=== PATIENT | male | born 1985 | race Caucasian/White ===

== ENCOUNTER 2020-03-31 15:00 | Emergency (ER) | payer OTHER, SELFPAY ==
[2020-03-31 15:14] VITALS: BP 153/115; PULSE 89; RESP 20; TEMP 37.3; O2SAT 98
--- NOTE | 2020-03-31 15:21 | ED.GENADULT ---
HPI - General Adult General Chief complaint: Eye Problems Stated complaint: eye problems Source: patient Mode of arrival: ambulatory Limitations: no limitations History of Present Illness HPI narrative: Patient is a 35-year-old male who presents complaining of left eye pain. Patient reports removing a door and cutting material when he believes something got in his left eye. Patient reports tearing, burning and irritation. He denies blurred vision. He reports flushing eye without relief. He denies taking [id number] pain medications prior to arrival. complaint: Left eye pain Related Data Allergies Allergy/AdvReac Type Severity Reaction Status Date / Time No Known Allergies Allergy Unknown Verified 03/31/20 15:03 Review of Systems Review of Systems: Narrative: CONSTITUTIONAL: Denies fever, chills, or sweats. EYES: LEFT eye pain, redness, and tearing. ENT: Denies rhinorrhea, congestion, sore throat, or otalgia. CARDIOVASCULAR: Denies chest pain, palpitations, or edema. RESPIRATORY: Denies cough or dyspnea. GASTROINTESTINAL: Denies abdominal pain, nausea, vomiting, or diarrhea. GENITOURINARY: Denies dysuria or hematuria. SKIN: Denies rash or itching. MUSCULOSKELETAL: Denies back pain, joint pain, or myalgia. NEUROLOGIC: Denies headache, numbness, dizziness, or weakness. PSYCHIATRIC: Denies anxiety or depression. PMFSH Surgical History Surgical History No significant past surgical history Family History Family History Mother Patient's mother is in good health Father Family history of cardiovascular disease Family history of chronic obstructive pulmonary disease Other Cerebrovascular accident Family history of alcoholism Hypertension No significant family history Social History Social History Smoking status: Heavy tobacco smoker Second hand tobacco smoke exposure: No Alcohol intake: current Gender identity (if verbalized by the patient): Male Exam Narrative: Exam Narrative: GENERAL: Well-appearing, well-nourished, and in no acute distress. HEAD: Normocephalic, atraumatic. EYES: LEFT eye tearing, sclera injected ENT: Mucous membranes pink and moist. CHEST: No respiratory distress. Clear to auscultation. HEART: Regular rate and rhythm. No murmur appreciated. Normal peripheral pulses. EXTREMITIES: Normal range of motion. No edema. SKIN: Warm, dry, no rash. NEURO: No focal deficits. Alert and oriented x3. Gait steady. PSYCH: Normal affect. No signs of depression or anxiety. Course Vital Signs Vital signs: Vital Signs Temperature 37.3 C 03/31/20 15:14 Pulse Rate 89 03/31/20 15:14 Respiratory Rate 20 03/31/20 15:14 Blood Pressure 153/115 H 03/31/20 15:14 Pulse Oximetry 98 03/31/20 15:14 Temperature 37.3 C 03/31/20 15:14 Pulse Rate 89 03/31/20 15:14 Respiratory Rate 20 03/31/20 15:14 Blood Pressure 153/115 H 03/31/20 15:14 Pulse Oximetry 98 03/31/20 15:14 Procedures Other Procedure Procedure 1: Other Procedure: Left eye was anesthetized with 1 drop of tetracaine and anesthesia was achieved. The eye was flushed with eyewash. Lid was inverted and examined. Moistened Q-tip was used to sweep underneath the upper eyelid with 0 foreign bodies resulting. Cornea was dyed with fluorescein and 1 abrasions or ulcerations were noted. Patient tolerated procedure well. Medical Decision Making MDM Narrative Medical decision making narrative: Patient has left corneal abrasion, ophthalmology appointment to be prescribed at this time. Patient given instructions for comfort. Patient verbalized understanding. Patient is stable for discharge to home with outpatient follow-up as directed. Vital Signs Vital Signs: Vital Signs Temperature 37.3 C 03/31/20 15:14 Pulse Rate 89
[2020-03-31 15:27] VITALS: BP 163/107
== END 2020-03-31 15:31 | disposition home or self-care (01) ==
PROVIDERS: Emergency Provider Nurse Practitioner
DX: S05.02XA Injury of conjunctiva and corneal abrasion without foreign body, left eye, initial encounter (principal); X58.XXXA Exposure to other specified factors, initial encounter; F17.200 Nicotine dependence, unspecified, uncomplicated
CPT/HCPCS: 99213; G0463

== ENCOUNTER 2021-04-11 01:14 | Emergency (ER) | payer OTHER, SELFPAY ==
--- NOTE | 2021-04-11 04:20 | ED.GENADULT ---
HPI - General Adult General Chief complaint: Eye Problems Stated complaint: flash burn from welding Time Seen by Provider: 04/11/21 04:15 History of Present Illness HPI narrative: Patient is a 36-year-old gentleman who presents the emergency department with chief complaint of Welders burn. Patient reports that he was welding today and started having burning on his eyes. The patient states it feels similar to when he had Welders burn before in the past patient denies any changes in his visual acuity Related Data Allergies Allergy/AdvReac Type Severity Reaction Status Date / Time No Known Allergies Allergy Unknown Verified 09/02/20 09:28 Review of Systems Review of Systems: A 10 system review of systems was completed on the patient and is negative except for what is stated in the HPI. Nursing and ancillary documentation was reviewed. PMFSH Surgical History Surgical History No significant past surgical history Family History Family History Mother Patient's mother is in good health Father Family history of cardiovascular disease Family history of chronic obstructive pulmonary disease Other Cerebrovascular accident Family history of alcoholism Hypertension No significant family history Social History Social History Smoking status: Current every day smoker Second hand tobacco smoke exposure: No Alcohol intake: current Gender identity (if verbalized by the patient): Male Exam Narrative: GENERAL: Well-appearing, well-nourished, and in no acute distress. HEAD: Normocephalic, atraumatic. EYES: PERRLA and EOMI. there is a punctate uptake of fluorescein consistent with UV keratitis ENT: Nares clear, no rhinorrhea or epistaxis. Mucous membranes moist. NECK: Supple. CHEST: Clear to auscultation. No respiratory distress. HEART: Regular rate and rhythm. No murmur heard. Normal peripheral pulses. ABDOMEN: Soft, nontender, nondistended, normal active bowel sounds. EXTREMITIES: Normal range of motion. No edema. SKIN: Warm, dry, no rash. NEURO: No focal deficits. Alert and oriented x3. PSYCH: Normal mood and affect. Discharge Plan Discharge Clinical Impression: UV keratitis Patient Disposition: Home, Self-Care Condition: Stable Instructions: Antibiotic Form Prescriptions: No Action amlodipine 5 mg tablet 5 mg PO DAILY Qty: 30 RF: 2 bupropion HCl [Wellbutrin XL] 150 mg tablet extended release 24 hr 150 mg PO QAM Qty: 30 RF: 2 omeprazole 40 mg capsule,delayed release(DR/EC) 40 mg PO DAILY Qty: 90 RF: 1 lisinopril 40 mg tablet 40 mg PO DAILY Qty: 90 RF: 1 Follow-up/Referrals: Manas Bailey MD [Primary Care Provider] - Time of Disposition: 04:22
--- NOTE | 2021-04-11 04:42 | PC.NURSE ---
Care of this pt was completed during [facility] downtime. This RN completed a paper chart for this pt.
[2021-04-11 04:43] VITALS: BP 153/115; PULSE 75; RESP 16; O2SAT 99
== END 2021-04-11 05:03 | disposition home or self-care (01) ==
PROVIDERS: Emergency Provider Emergency Medicine
DX: H16.139 Photokeratitis, unspecified eye (principal); F17.200 Nicotine dependence, unspecified, uncomplicated
CPT/HCPCS: 99282

== ENCOUNTER 2023-05-26 13:37 | Emergency (ER) | payer OTHER, SELFPAY ==
--- NOTE | 2023-05-26 13:49 | ED.URI ---
HPI - URI/Sore Throat General Chief Complaint: Upper Respiratory Infection Stated Complaint: bilateral ear pain,sorethroat Time Seen by Provider: 05/26/23 13:49 Source: patient Mode of arrival: ambulatory Limitations: no limitations History of Present Illness HPI Narrative: Patient is a 38-year-old male who presents with bilateral ear pain and sore throat that started yesterday. Patient has had congestion and drainage off and on for the last 2 weeks. Patient states his family has all tested negative for COVID and strep throughout the last 2 weeks. States children were treated for bronchitis. Has been taking DayQuil and NyQuil. States he is still able to tolerate swallowing secretions but it is painful. Reports last time he had strep throat he was hospitalized due to inability to swallow pills. Related Data Allergies Allergy/AdvReac Type Severity Reaction Status Date / Time No Known Allergies Allergy Unknown Verified 09/02/20 09:28 Review of Systems Review of Systems: All systems reviewed & are unremarkable except as noted in HPI and below Constitutional: Constitutional: Denies body ache(s), Denies fever(s), Denies headache(s), Denies malaise and Denies weakness Eyes: Eyes: Denies loss of vision ENT: Denies otalgia, Denies headache(s), Reports nasal congestion, Denies sinus pain and Reports sore throat Cardiovascular: Cardiovascular: Denies chest pain, Denies irregular heart rhythm and Denies dyspnea Respiratory: Respiratory: Denies cough and Denies dyspnea Gastrointestinal: Gastrointestinal: Denies abdominal pain, Denies melena, Denies hematochezia, Denies diarrhea, Denies nausea and Denies vomiting Musculoskeletal: Musculoskeletal: Denies back pain, Denies myalgias and Denies arthralgias Integumentary/Breasts: Skin/Breast: Denies pruritus and Denies rash Neurologic: Denies headache(s), Denies loss of vision and Denies weakness Psychiatric: Psychiatric: Reports no additional psychiatric complaints PMFSH Surgical History Surgical History No significant past surgical history Family History Family History Mother Patient's mother is in good health Father Family history of cardiovascular disease Family history of chronic obstructive pulmonary disease Other Cerebrovascular accident Family history of alcoholism Hypertension No significant family history Social History Social History Smoking status: Current every day smoker Second hand tobacco smoke exposure: No Alcohol intake: current Gender identity (if verbalized by the patient): Male Comments At time of signature, agree with nursing past medical, surgical, social and family history. There is no relevant family history pertinent to the presenting complaint. Exam Const: General: cooperative, healthy appearing, comfortable, no acute distress and well nourished Nutritional Appearance: well nourished Orientation/consciousness: patient oriented x3 Limitations: no limitations HENMT: Head: normal to inspection, normocephalic and atraumatic Ears: hearing grossly normal bilaterally, external ears normal, TM's normal bilaterally and EAC's normal Face/Nose/Sinus: Normal external nose present, Normal nares present, Normal nasal mucous membranes and turbinates present, Normal septum present, normal facial exam, sinuses nontender and face symmetric Face and sinus: normal facial exam, sinuses nontender and face symmetric Mouth: Yes Normal oral and palatal mucosa present, Yes lip normal and Yes moist mucous membranes Teeth and gingiva: dentition normal Throat: uvula midline, abnormal tonsil bilateral erythema, exudates and hypertrophy 3+, posterior oropharynx abnormal edema, erythema and exudates and postnasal drainage Eyes: General: appearance normal, both eyes and all rel
[2023-05-26 14:02] VITALS: BP 150/99; PULSE 90; RESP 18; TEMP 36.3; O2SAT 98
== END 2023-05-26 14:30 | disposition home or self-care (01) ==
PROVIDERS: Emergency Provider Nurse Practitioner Family
DX: J03.90 Acute tonsillitis, unspecified (principal); F17.200 Nicotine dependence, unspecified, uncomplicated
CPT/HCPCS: 87081; 87880; 99213; G0463

== ENCOUNTER 2023-05-26 21:25 | Emergency (ER) | payer OTHER, SELFPAY ==
--- NOTE | ~2023-05-26 | XR_ITS ---
EXAMINATION: XR chest 2V Exam Date/Time: 05/26/2023 23:55 COMMUNITY DEVELOPMENT DIRECTOR HISTORY: cough SORE THROAT Comparison: None. RESULT: Lines, tubes, and devices: None. Lungs and pleura: Clear. Cardiomediastinal silhouette: Normal. Other: No acute osseous or upper abdominal finding. IMPRESSION: No acute cardiopulmonary process. Reviewed, dictated and finalized at location K. UNITY DEVELOPMENT DIRECTOR
--- NOTE | ~2023-05-26 | CT_ITS ---
CT scan of the Neck Technique: 2.5 mm axial scans were obtained through the neck after intravenous administration of 75 c c Omnipaque 350. Coronal and sagittal reconstructions of the neck were obtained. Dose reduction techn ique was used on this scan by utilizing automated exposure control and iterative reconstruction techn ique. The dose-length product (DLP) was 1197.76 mGy-cm. Clinical History: Left peritonsillar abscess Findings: There is probable tonsillitis and/or phleboliths change involving the left palatine tonsil, without d iscrete, peripherally enhancing mature abscess. There is minimal mass effect upon the left-sided airw ay. There is minimal infiltration of left parapharyngeal fat. Minimally prominent reactive cervical l ymph nodes are present. Edematous change extends to the left aryepiglottic fold region. The pharyngeal mucosal spaces appear normal. No soft tissue masses are seen in the neck. The thyroid gland appears normal. Images of the lung apices reveal no abnormalities. Impression: Findings compatible with tonsillitis and early phlegmonous change in the left palatine tonsil, with e mindi extending to the left aryepiglottic fold region. No mature/drainable abscess evident. Reviewed, dictated and finalized at location M. S SHOP SUPERVISOR Impression: Findings compatible with tonsillitis and early phlegmonous change in the left p alatine tonsil, with edema extending to the left aryepiglottic fold region. No mature/drainable abscess evident.
[2023-05-26 21:28] VITALS: BP 162/112; PULSE 99; RESP 16; TEMP 36.6; O2SAT 94
--- NOTE | 2023-05-26 23:25 | ED.GENADULT ---
HPI - General Adult General Chief complaint: Unspecified Stated complaint: sore throat, swollen tonsils Time Seen by Provider: 05/26/23 22:58 History of Present Illness HPI narrative: 38-year-old male reports for evaluation for a sore throat for 3 days. Patient states he has stated left ear pain and states the left side of his throat is worse in the right side. He is unable to swallow and has a saliva cup with him at bedside. He also reports a productive cough and generalized fatigue for the past few days. states he went to Urgent Care for 5 hours ago had a negative strep test done. He was sent home with liquid amoxicillin and Magic mouth wash which did not relieve his pain therefore prompted him to come to the ED. he does report positive sick contacts at home. Denies known fever, nausea or vomiting, airway compromise or difficulty Breathing. Related Data Allergies Allergy/AdvReac Type Severity Reaction Status Date / Time No Known Allergies Allergy Unknown Verified 09/02/20 09:28 Review of Systems Review of Systems: CONSTITUTIONAL: Denies fever, chills, or sweats. EYES: Denies visual changes, redness, or discharge. ENT: See HPI CARDIOVASCULAR: Denies chest pain, palpitations, or edema. RESPIRATORY: see HPI GASTROINTESTINAL: Denies abdominal pain, nausea, vomiting, or diarrhea. GENITOURINARY: Denies dysuria or hematuria. SKIN: Denies rash or itching. MUSCULOSKELETAL: Denies back pain, joint pain, or myalgia. NEUROLOGIC: Denies headache, numbness, or weakness. PSYCHIATRIC: Denies anxiety or depression. PMFSH Surgical History Surgical History No significant past surgical history Family History Family History Mother Patient's mother is in good health Father Family history of cardiovascular disease Family history of chronic obstructive pulmonary disease Other Cerebrovascular accident Family history of alcoholism Hypertension No significant family history Social History Social History Smoking status: Current every day smoker Second hand tobacco smoke exposure: No Alcohol intake: current Gender identity (if verbalized by the patient): Male Exam Narrative: GENERAL: Well-appearing, well-nourished, and in no acute distress. HEAD: Normocephalic, atraumatic. EYES: PERRLA and EOMI. ENT: Nares clear, no rhinorrhea or epistaxis. Mucous membranes moist. posterior pharynx erythematous and edematous. Left tonsil mildly larger than the right tonsil with overlying exudate. Uvula midline and without edema. No airway compromise. No trismus. Patient is having difficulty swallowing saliva. Right TM perdomo nonbulging with normal canal. Left TM injected, no bulging. good light reflex. Normal canal. No tenderness to mastoids or movement of helix. NECK: Supple. CHEST: Clear to auscultation. No respiratory distress. HEART: Regular rate and rhythm. No murmur heard. Normal peripheral pulses. ABDOMEN: Soft, nontender, nondistended, normal active bowel sounds. EXTREMITIES: Normal range of motion. No edema. SKIN: Warm, dry, no rash. NEURO: No focal deficits. Alert and oriented x3 Course Vital Signs Vital signs: Vital Signs Temperature 97.9 F 05/26/23 21:28 Pulse Rate 99 05/26/23 21:28 Respiratory Rate 16 05/26/23 21:28 Blood Pressure 162/112 H 05/26/23 21:28 Pulse Oximetry 94 05/26/23 21:28 Oxygen Delivery Room Air 05/26/23 21:28 Temperature 97.9 F 05/26/23 21:28 Pulse Rate 99 05/26/23 21:28 Respiratory Rate 16 05/26/23 21:28 Blood Pressure 162/112 H 05/26/23 21:28 Pulse Oximetry 94 05/26/23 21:28 Oxygen Delivery Room Air 05/26/23 21:28 Medical Decision Making MDM Narrative Medical decision making narrative: 38-year-old male reports for evaluation for sore throat and dif
[2023-05-26] MEDS: SODIUM CHLORIDE 0.9% IV 1,000 ML 999 ML IV CONT (23:44)
[2023-05-26] MEDS: KETOROLAC 30 MG/ML VIAL (*BKC) IV PUSH (23:45)
[2023-05-27 00:10] LABS: CRP 5.3 mg/dL (<1.0)
[2023-05-27 00:19] LABS: Monoscreen Negative (Negative); Negative Monotest Control Negative (Negative); Positive Monotest Control Positive (Positive)
[2023-05-27 00:24] LABS: Strep Group A RT-PCR NOT DETECTED (Negative)
[2023-05-27 00:25] LABS: Alanine Aminotransferase 59 U/L (6-50); Albumin Level 4.9 g/dL (3.5-5.1); Alkaline Phosphatase 133 U/L (38-126); Anion Gap 15 mmol/L (8-16); Aspartate Amino Transferase 38 U/L (17-59); Bilirubin,Total 0.9 mg/dL (0.2-1.3); Blood Urea Nitrogen 18 mg/dL (9-20); Calcium 9.6 mg/dL (8.4-10.2); Carbon Dioxide 23 mmol/L (22-30); Chloride 100 mmol/L (98-107); Erythrocyte Sedimentation Rate 12 mm/hr (0-20); Estimated CRCL calculation 105 ml/min; Estimated Glomerular Filt Rate > 60; Glucose 112 mg/dL (65-110); Potassium 4.2 mmol/L (3.4-5.0); Sodium 138 mmol/L (137-145)
[2023-05-27 00:35] LABS: Influenza A QL RT-PCR Negative (Negative); Influenza B QL RT-PCR Negative (Negative); SARS-CoV-2 RNA PCR Negative (Negative)
[2023-05-27 02:22] LABS: Basophils Absolute Auto 0.1 K/mm3 (0.0-0.1); Basophils Percent Auto 0.5 % (0.2-1.2); Eosinophils Absolute Auto 0.2 K/mm3 (0-0.3); Hematocrit 45.7 % (42.0-52.0); Hemoglobin 15.4 g/dL (14.0-18.0); Immature Granulocyte Absolute 0.04 K/mm3 (0.00-0.031); Immature Granulocyte Percent A 0.2 % (0-0.5); Lymphocytes Absolute Auto 1.98 K/mm3 (0.9-3.2); Mean Corpuscular HGB Conc 33.7 g/dl (32-36); Mean Corpuscular Hemoglobin 31.8 pg (26-34); Mean Corpuscular Volume 94.4 fl (80-100); Mean Platelet Volume 10.4 fl (7.4-10.4); Monocytes Absolute Auto 1.5 K/mm3 (0.1-0.6); Monocytes Percent Auto 8.9 % (2.6-8.5); Neutrophils Absolute Auto 12.8 K/mm3 (1.3-6.7); Neutrophils Percent Auto 77.4 % (45.5-73.1); Platelet Count Result 301 k/mm3 (150-375); Red Blood Count 4.84 M/mm3 (4.6-6.20); Red Cell Distribution Width 12.8 % (11.5-14.5); White Blood Count 16.5 K/mm3 (4.5-10.0)
[2023-05-27 02:50] VITALS: BP 144/98; PULSE 86; RESP 16; O2SAT 100
== END 2023-05-27 02:51 | disposition home or self-care (01) ==
PROVIDERS: Emergency Provider Physician Assistant
DX: J02.8 Acute pharyngitis due to other specified organisms (principal); F17.200 Nicotine dependence, unspecified, uncomplicated; Z20.822 Contact with and (suspected) exposure to COVID-19
CPT/HCPCS: 36415; 70491; 71046; 80053; 85025; 85652; 86140; 86308; 87081; 87636; 87651; 87880; 96361; 96374; 96375; 99284; J1100; J1885; J7030; Q9967

== ENCOUNTER 2024-02-25 08:15 | Outpatient (CLI) | payer OTHER, SELFPAY ==
[2024-02-25 09:19] LABS: Alanine Aminotransferase 28 U/L (6-50); Alkaline Phosphatase 96 U/L (38-126); Anion Gap 12 mmol/L (4-12); Aspartate Amino Transferase 31 U/L (17-59); Bilirubin,Total 0.5 mg/dL (0.2-1.3); Blood Urea Nitrogen 21 mg/dL (9-20); Calcium 9.3 mg/dL (8.4-10.2); Carbon Dioxide 27 mmol/L (22-30); Chloride 97 mmol/L (98-107); Estimated Glomerular Filt Rate > 60; Glucose 104 mg/dL (65-110); Potassium 3.5 mmol/L (3.4-5.0); Sodium 136 mmol/L (137-145)
[2024-02-25 10:05] LABS: Hemoglobin A1C 5.5 % (<5.7)
== END 2024-02-25 08:16 | disposition home or self-care (01) ==
PROVIDERS: PCP Family Medicine; Visit Provider Family Medicine
DX: R73.09 Other abnormal glucose (principal); I10 Essential (primary) hypertension
CPT/HCPCS: 36415; 80053; 83036

== ENCOUNTER 2024-05-19 08:27 | Outpatient (CLI) | payer OTHER, SELFPAY ==
[2024-05-19 09:12] LABS: Alanine Aminotransferase 22 U/L (6-50); Aspartate Amino Transferase 25 U/L (17-59)
== END 2024-05-19 08:28 | disposition home or self-care (01) ==
LOC: ANHLAB 08:28
PROVIDERS: PCP Family Medicine; Visit Provider Family Medicine
DX: Z79.899 Other long term (current) drug therapy (principal)
CPT/HCPCS: 36415; 84450; 84460

== ENCOUNTER 2024-05-31 03:10 | Day surgery (SDC) | payer OTHER, SELFPAY ==
[2024-05-10 15:39] VITALS: BMI 32.3
[2024-05-31 07:11] VITALS: BP 139/98; PULSE 74; RESP 16; TEMP 36.2; O2SAT 99; BMI 32.8
[2024-05-31] MEDS: LACTATED RINGERS 1,000 ML 150 ML IV CONT (07:24)
--- NOTE | 2024-05-31 08:01 | WPDANESEPPF ---
Anes - Initial Pre Proc Eval Procedure: Operation Date: 05/31/24 08:30 Proposed Procedures p Colonoscopy - Nelson Steiner MD Date/Time: 05/31/24 08:01 Surgeon: Nelson Steiner MD Pre Op Diagnosis: hemorrhage Patient Data Age: 39 Gender: M Height: 1.68 m Weight: 92.4 kg Last Vital Signs Temp 36.2 C L 05/31/24 07:11 Pulse 74 05/31/24 07:11 Resp 16 05/31/24 07:11 BP 139/98 H 05/31/24 07:11 Pulse Ox 99 05/31/24 07:11 O2 Del Method Room Air 05/31/24 07:11 Allergies Allergy/AdvReac Type Severity Reaction Status Date / Time No Known Allergies Allergy Unknown Verified 05/31/24 07:07 Home Medications Medication Instructions Recorded Confirmed Type fluoxetine 20 mg capsule 20 mg PO DAILY #90 caps 05/19/24 05/31/24 Rx lisinopril 20 1 tablet PO DAILY #90 tabs 05/19/24 05/31/24 Rx mg-hydrochlorothiazide 12.5 mg tablet rosuvastatin 10 mg tablet 10 mg PO .pm #90 tabs 05/19/24 05/31/24 Rx Patient hx anesthesia problems: none Family hx anesthesia problems: none Results Review: All pre-operative results and documents have been reviewed as part of the pre-operative evaluation. [facility] Past Medical History Medical History Class 1 obesity due to excess calories with serious comorbidity and body mass index (BMI) of 30.0 to 30.9 in adult Essential hypertension Establishing care with new doctor, encounter for Excessive consumption of soda pop Functional diarrhea Hypertension Plantar fasciitis, bilateral Tobacco use disorder, continuous Surgical History Surgical History No significant past surgical history Family History Family History Mother Patient's mother is in good health Father Family history of cardiovascular disease Family history of chronic obstructive pulmonary disease Other Cerebrovascular accident Family history of alcoholism Hypertension No significant family history Social History Social History Social History: Smoking packs per day: 1.5 Smoking cigarettes per day: 30.0 Years smoked: 20 Smoking pack-years: 30.00 Smoking status: Current every day smoker Tobacco type: cigarettes Second hand tobacco smoke exposure: No Alcohol intake: current Alcohol use details: ONCE A MONTH Substance use: current Substance use type: marijuana Other substance usage details: SMOKES DAILY, GUMMIES OCCASIONALLY Do You Feel Safe in your Home?: Yes Lack of Transportation: No Lack of Food: Never True Current Housing: I Have Housing Concerned About Future Housing: No Difficulty Paying Gas/Electric Bills: No Difficulty Paying for Meds: No Currently Unemployed: No Education: Don't Know Difficulty w/ Childcare or Family Care: No Living arrangements: with family Occupation/Education: occupation 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 Gender identity (if verbalized by the patient): Male Sexual Orientation (if Verbalized by the Patient): Straight or Heterosexual Spiritual care concerns: No Anes - Eval Final PreProcedure Day of Procedure 05/31/24 08:01 Patient weight: obese Heart: regular rate and rhythm Lungs: decreased breath sounds Airway: Mallampati scale class II Neurological: alert and oriented Last oral intake: >/= 8 hours ASA classification: III Emergent: no Anesthetic plan: proceed Anesthesia type and monitoring: general GIVS and standard monitoring Results Review: All pre-operative results and documents have been reviewed as part of the pre-operative evaluation. Informed Consent: The patient's anesthetic plan and its attendant risks and benefits were discussed with the patient/family/POA. Questions were solicited and answers provided to the satisfaction of the patient/family/POA.
--- NOTE | 2024-05-31 08:05 | P.HP_ITS ---
H&P: HPI History of Present Illness Date/Time: 05/31/24 08:05 Chief Complaint: rectal bleeding Narrative: this patient has noticed intermittent passage of bright red blood per rectum, but last time 1 week ago. In addition he describes irregularity in his bowel habits, having fluctuation between constipation and diarrhea. He is here for colonoscopy. Review of Systems Review of Systems: All systems reviewed & are unremarkable except as noted in HPI and below PMFSH Past Medical History Medical History Class 1 obesity due to excess calories with serious comorbidity and body mass index (BMI) of 30.0 to 30.9 in adult Essential hypertension Establishing care with new doctor, encounter for Excessive consumption of soda pop Functional diarrhea Hypertension Plantar fasciitis, bilateral Tobacco use disorder, continuous Surgical History Surgical History No significant past surgical history Family History Family History Mother Patient's mother is in good health Father Family history of cardiovascular disease Family history of chronic obstructive pulmonary disease Other Cerebrovascular accident Family history of alcoholism Hypertension No significant family history Social History Social History Social History: Smoking packs per day: 1.5 Smoking cigarettes per day: 30.0 Years smoked: 20 Smoking pack-years: 30.00 Smoking status: Current every day smoker Tobacco type: cigarettes Second hand tobacco smoke exposure: No Alcohol intake: current Alcohol use details: ONCE A MONTH Substance use: current Substance use type: marijuana Other substance usage details: SMOKES DAILY, GUMMIES OCCASIONALLY Do You Feel Safe in your Home?: Yes Lack of Transportation: No Lack of Food: Never True Current Housing: I Have Housing Concerned About Future Housing: No Difficulty Paying Gas/Electric Bills: No Difficulty Paying for Meds: No Currently Unemployed: No Education: Don't Know Difficulty w/ Childcare or Family Care: No Living arrangements: with family Occupation/Education: occupation 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 Gender identity (if verbalized by the patient): Male Sexual Orientation (if Verbalized by the Patient): Straight or Heterosexual Spiritual care concerns: No Meds Home Medications and Allergies Home Medications Medication Instructions Recorded Confirmed Type fluoxetine 20 mg capsule 20 mg PO DAILY #90 caps 05/19/24 05/31/24 Rx lisinopril 20 1 tablet PO DAILY #90 tabs 05/19/24 05/31/24 Rx mg-hydrochlorothiazide 12.5 mg tablet rosuvastatin 10 mg tablet 10 mg PO .pm #90 tabs 05/19/24 05/31/24 Rx Allergies Allergy/AdvReac Type Severity Reaction Status Date / Time No Known Allergies Allergy Unknown Verified 05/31/24 07:07 Vital Signs Vital Signs - 24 hr 05/31/24 07:11 Temperature 97.2 F L Pulse Rate 74 Respiratory Rate 16 Blood Pressure 139/98 H Pulse Oximetry 99 Oxygen Delivery Room Air Exam Const: General: cooperative and healthy appearing Resp: Effort & Inspection: normal respiratory effort and able to speak in complete sentences Auscultation: clear to auscultation bilaterally Cardio: Rate: regular rate Rhythm: regular rhythm GI: Inspection: normal to inspection GI Palp: No No hepatosplenomegaly present Auscultation: normal bowel sounds Rectal Exam: deferred Skin: General skin exam: normal color Psych: Appearance: grossly normal Mental Status: mental status grossly normal Assessment and Plan Assessment and plan (1) Bright red rectal bleeding: Code(s): K62.5 - Hemorrhage of anus and rectum Status: Acute Assessment and Plan: The patient is deemed a good candidate for the procedure. Consent signed. Will proceed.
[2024-05-31 08:34] VITALS: BP 143/78; PULSE 67; RESP 22; O2SAT 100
[2024-05-31 08:44] VITALS: BP 123/80; PULSE 64; RESP 23; O2SAT 100
[2024-05-31 08:54] VITALS: BP 124/89; PULSE 61; RESP 17; O2SAT 100
== END 2024-05-31 09:02 | disposition home or self-care (01) ==
PROVIDERS: PCP Family Medicine; Referring Provider Student in an Organized Health Care Education/Training Program; Visit Provider Internal Medicine Gastroenterology
PROC: 0DJD8ZZ Inspection of Lower Intestinal Tract, Via Natural or Artificial Opening Endoscopic (ICD-10-PCS; CPT 45378; principal; 2024-05-31 08:30)
DX: K63.5 Polyp of colon (principal); K64.0 First degree hemorrhoids; K59.1 Functional diarrhea; I10 Essential (primary) hypertension; F17.210 Nicotine dependence, cigarettes, uncomplicated; F12.90 Cannabis use, unspecified, uncomplicated; E66.9 Obesity, unspecified; Z68.32 Body mass index [BMI] 32.0-32.9, adult; Z82.49 Family history of ischemic heart disease and other diseases of the circulatory system
CPT/HCPCS: 45385; 88305; J2003; J2704; J7120